=== PATIENT | male | born 1960 | race Caucasian/White ===

== ENCOUNTER 2022-03-07 13:26 | Outpatient (CLI) | payer OTHER, SELFPAY ==
[2022-03-07 13:58] LABS: Creatinine Urine 82.3 mg/dL
[2022-03-07 14:03] LABS: Microalbumin Creatinine Ratio 20 mg/g (0-30); Microalbumin Urine 2 mg/dL
[2022-03-07 14:16] LABS: Albumin* 4.2 g/dL (3.3-5.0); Chloride* 107 mmol/L (96-114); Sodium* 139 mmol/L (135-149)
[2022-03-07 14:17] LABS: Potassium* 4.4 mmol/L (3.6-5.1)
[2022-03-07 14:19] LABS: Alkaline Phosphatase* 127 U/L (40-150); Aspartate Amino Transferase* 24 U/L (12-35); Bilirubin Total* 0.9 mg/dL (0.1-1.5); Blood Urea Nitrogen* 15 mg/dL (7-30); Carbon Dioxide* 28 mmol/L (20-32); Cholesterol* 134 mg/dL (90-199); Creatinine* 0.9 mg/dL (0.5-1.5); Estimated Glomerular Filt Rate 97 ml/min; Glucose* 104 mg/dL (60-115); Total Protein* 6.9 g/dL (6.0-8.3)
[2022-03-07 14:20] LABS: Alanine Aminotransferase* 27 U/L (4-50); HDL Cholesterol* 43 mg/dL (>=40); LDL Cholesterol Calculated 65 mg/dL (<100); Triglycerides* 128 mg/dL (40-149)
== END 2022-03-07 13:27 | disposition home or self-care (01) ==
PROVIDERS: PCP Physician Assistant Medical; Visit Provider Physician Assistant Medical
DX: E78.5 Hyperlipidemia, unspecified (principal)
CPT/HCPCS: 80053; 80061; 82043; 82570

== ENCOUNTER 2022-03-25 08:20 | Emergency (ER) | payer OTHER, SELFPAY ==
[2022-03-25 08:25] VITALS: BP 124/71; PULSE 75; RESP 18; TEMP 36.2; O2SAT 98; BMI 27.4
--- NOTE | 2022-03-25 08:51 | ED.BACK ---
HPI - Back Pain/Injury General Chief Complaint: Back Injury/Pain Stated Complaint: possible stroke Time Seen by Provider: 03/25/22 08:28 History of Present Illness HPI Narrative: This 61-year-old male comes in with pain in his low back radiating down his whole left leg. He states that this pain started a few days ago and became significantly worse this morning. He was up this morning and had intense pain and became very diaphoretic. He called a nurse line and was instructed to come here for evaluation. He states that he has a history of stroke and is on warfarin he does not describe any neurologic deficits. There was no particular injury event or strenuous activity that brought about his back pain radiating down the leg. Related Data Home Medications Medication Instructions Recorded Confirmed warfarin 5 mg tablet 5 mg PO QDAY 03/07/22 03/07/22 Previous Rx's Medication Instructions Recorded atorvastatin 80 mg tablet 80 mg PO QHS #30 tabs 03/06/22 lisinopril 10 mg tablet 10 mg PO QDAY #30 tabs 03/06/22 metoprolol succinate 200 mg 200 mg PO QDAY #30 tabs 03/06/22 tablet,extended release 24 hr cyclobenzaprine 10 mg tablet 10 mg PO TID #15 tabs 03/25/22 hydrocodone 5 mg-acetaminophen 325 1 tab PO Q4-6H PRN pain #20 tabs 03/25/22 mg tablet methylprednisolone 4 mg tablets in See Rx Instructions PO .COMPLEX 03/25/22 a dose pack (Medrol (Ang)) #21 ea Allergies Allergy/AdvReac Type Severity Reaction Status Date / Time No Known Drug Allergies Allergy Verified 03/07/22 09:07 Review of Systems Status of ROS: Reports: 10 or more systems reviewed and unremarkable except as noted in History and below Narrative: Constitutional: No fevers, no weight gain or loss. Eyes: No discharge. No vision changes. HENT: No congestion, no sore throat, no ear pain. Cardiovascular: No chest pain, no palpitations. Respiratory: No shortness of breath, no wheezes, no cough. Gastrointestinal: No abdominal pain, no vomiting, no diarrhea. Genitourinary: No dysuria, no hematuria. Musculoskeletal: Normal range of motion. Low back pain radiating down the left leg. Skin: No rashes, no pruritis. Neurological: No dizziness, weakness, sensory change, speech change. Endo/Heme/Allergies: No bruising or bleeding. No polydipsia. Pysch: no suicidality, no anxiety, no insomnia. All other systems reviewed and are negative. [facility] Medical History (Updated 03/25/22 @ 08:55 by Dawit Mendez MD) Hyperlipemia Exam Narrative: Exam Narrative: Constitutional: Well-developed, well-nourished, no acute distress. HEENT: Normocephalic, atraumatic. Neck: Normal range of motion. Nontender. Supple. Heart: Regular. No murmurs. Normal rate. Intact distal pulses. Lungs: Clear to auscultation. No chest discomfort. No wheezes, rhonchi, or rales. Abdomen: Normal bowel sounds. Nontender. No rebound tenderness. Genitalia: Deferred. Back: No midline tenderness. Pain in the left lower back radiating down the posterior left leg. Straight leg raise of the left leg is positive at about 20?. Extremities: Normal range of motion. No injury. Skin: Intact. No rash. Warm. No erythema or pallor. Neurologic: No altered sensation. No weakness. Alert and oriented. No facial asymmetry. Tongue is midline. Sales Account Specialist strength is equal bilaterally. [id number] is normal. No pronator drift. Heel to daniels is normal. Psychiatric: No suicidality. No anxiety or depression. No insomnia. Nursing notes and vitals signs are reviewed. Const: Vital Signs, click to edit/add: Vital Signs - 24 hr 03/25/22 08:25 Temperature 97.1 F L Pulse Rate [Right Pulse Oximeter] 75 Respiratory Rate 18 Blood Pressure [Ri ght Upper Arm] 124/71 Pulse Oximetry 98 Oxygen Delivery Me thod Room Air Course Vital Signs Vital signs: Initial Vital Signs Temperature 97.1 F L 03/25/22 08:25 Temperature Source Temporal Artery Scan 03/25/22 08:25 Pulse Rate 75 03/25/22 08:25 Respiratory Rate 18 03/25/22 08:25 Blood Pressure 124/71 03/25/22 08:25 Blood Pressure Mean 88 03/25/22 08:25 Blood Pressure Position Sitting 03/25/22 08:25 Pulse Oximetry 98 03/25/22 08:25 Oxygen Delivery Method 03/25/22 08:25 Vital Signs Temperature 97.1 F L 03/25/22 08:25 Pulse Rate 75 03/25/22 08:25 Respiratory Rate 18 03/25/22 08:25 Blood Pressure 124/71 03/25/22 08:25 Pulse Oximetry 98 03/25/22 08:25 Oxygen Delivery Method 03/25/22 08:25 Temperature 97.1 F L 03/25/22 08:25 Pulse Rate 75 03/25/22 08:25 Respiratory Rate 18 03/25/22 08:25 Blood Pressure 124/71 03/25/22 08:25 Pulse Oximetry 98 03/25/22 08:25 Oxygen Delivery Method 03/25/22 08:25 MDM - Back Pain/Injury MDM Narrative Medical decision making narrative: This patient comes in with symptoms typical of a lumbar radiculopathy. His straight leg raise of the left leg is positive. He did not have any specific injury event or mechanism of injury that would indicate imaging at this time. The patient received an intramuscular injection of morphine 10 mg. Prescriptions for Medrol Dosepak, [place], and Flexeril are provided. I advised the patient to follow-up with [facility] here if not improving. Discharge Plan Discharge Clinical Impression: Lumbar radiculopathy Patient Disposition: Home, Self-Care Condition: Stable Additional Instructions: Take medication as prescribed. Follow up with [facility] if not improving. Call [phone] for appointment. Return if worsening. Prescriptions: New cyclobenzaprine 10 mg tablet 10 mg PO TID Qty: 15 0RF hydrocodone-acetaminophen 5-325 mg tablet 1 tab PO Q4-6H PRN (Reason: pain) Qty: 20 0RF methylprednisolone [Medrol (Ang)] 4 mg tablets,dose pack See Rx Instructions .ROUTE .COMPLEX Qty: 21 0RF Rx Instructions: orally per package directions No Action warfarin 5 mg tablet 5 mg PO QDAY Protocol: Dose Management Condition: Sunday Dose/Route: 5 mg Instruction: 1 x 5 mg tablet Condition: Sunday Dose/Route: 5 mg Instruction: 1 x 5 mg tablet Condition: Sunday Dose/Route: 5 mg Instruction: 1 x 5 mg tablet Condition: Sunday Dose/Route: 5 mg Instruction: 1 x 5 mg tablet Condition: Dose/Route: 5 mg Instruction: 1 x 5 mg tablet Condition: Sunday Dose/Route: 5 mg Instruction: 1 x 5 mg tablet Condition: Sunday Dose/Route: 5 mg Instruction: 1 x 5 mg tablet Protocol Text: Adjustment Start Date: Sunday03/07/22 INR Value: 2.0 INR Date: 03/07/22 Recheck Date: 04/04/22 atorvastatin 80 mg tablet 80 mg PO QHS Qty: 30 0RF metoprolol succinate 200 mg tablet extended release 24 hr 200 mg PO QDAY Qty: 30 0RF lisinopril 10 mg tablet 10 mg PO QDAY Qty: 30 0RF Follow Up/Referrals: Maral Cooper [facility] [Primary Care Provider] - Stand Alone Forms: MyHealth Info Instructions
[2022-03-25] MEDS: MORPHINE 10 MG/ML inj IM (08:57)
--- OUTSIDE RECORDS SUMMARY | 2022-03-25 09:22 | XMS_ITS | Clinical Summary ---
:1960 Author Organization [employer] [facility] [place] [address] Care Team Providers Name Role Phone Skip Fallon MD Primary Care Provider [phone] Allergies No known active allergies Medications Medication Sig Dispensed Refills Start Date End Date Status warfarin (COUMADIN) 1 Take 2 tablets 30 tablet 0 03/04/2017 Active mg tabletIndications: by mouth once Left ventricular daily. apical thrombus without IA (HC) warfarin (COUMADIN) 5 Take 1 tablet by 30 tablet 0 03/04/2017 Active mg tabletIndications: mouth once Left ventricular daily. apical thrombus without IA (HC) aspirin chewable 81 mg Take 1 tablet by 91 tablet 3 03/06/2017 Active chewable mouth once daily tabletIndications: with a meal. Ischemic cardiomyopathy nicotine (COMMIT) [address] 1 Lozenge 300 Lozenge 6 7 Active lozengeIndications: in mouth, Tobacco abuse between cheek & gum every hour while awake as needed for Nicotine Craving. nitroglycerin Place 1 tablet 1 Bottle 3 04/03/2017 Active (NITROSTAT) 0.4 mg under the tongue sublingual every 5 minutes tabletIndications: if needed for ASHD (arteriosclerotic Chest Pain. heart disease) nicotine 14 mg/24 hr Apply 1 Patch on 30 Patch 6 04/24/2017 Active (NICODERM; HABITROL) dry, clean, 14 mg/24 hr hairless skin patchIndications: once daily. Tobacco abuse atorvastatin (LIPITOR) Take 1 tablet by 30 tablet 0 07/23/2018 Active 80 mg mouth once tabletIndications: daily. Dyslipidemia lisinopril (PRINIVIL; Take 1 tablet by 30 tablet 0 07/23/2018 Active ZESTRIL) 10 mg mouth once tabletIndications: daily. Ischemic cardiomyopathy metoprolol succinate Take 1 tablet by 30 tablet 0 07/23/2018 Active SR (TOPROL XL) 200 mg mouth once Sustained-Release daily. tabletIndications: Ischemic cardiomyopathy, Atrial fibrillation with RVR (HC) Active Problems Problem Noted Date Acute embolic stroke 03/01/2017 Left ventricular apical thrombus without IA 03/01/2017 Cardiomyopathy 03/01/2017 Tobacco use 03/01/2017 Sebaceous cyst 2006 Immunizations Name Administration Dates Next Due Influenza, IIV4 03/03/2017 Family History Medical History Relation Name Comments Heart failure Mother viral? Premature CHD (under age 60) Neg. Heart Disease No Family History Stroke No Family History Relation Name Status Comments Mother Neg. Social History Tobacco Use Types Packs/Day Years Used Date Smoking Tobacco: Former Cigarettes 0.5 40 Quit : 04/16/2017 Smokeless Tobacco: Never Alcohol Use Standard Drinks/Week Comments Yes 0 (1 standard drink = 0.6 oz pure alcoho l) 2-4 beers/ week Sex Assigned at Date Recorded Not on file Obstetrics History Last Filed Vital Signs Vital Sign Reading Time Taken Comments Blood Pressure 118/70 04/24/2017 3:59 PM CHICK GRADER Pulse 72 04/24/2017 3:59 PM CHICK GRADER Temperature 36.8 ??C (98.2 ??F) 03/04/2017 9:50 AM CHICK GRADER Respiratory Rate 16 04/24/2017 12:58 PM CHICK GRADER Oxygen Saturation 96% 04/24/2017 3:59 PM CHICK GRADER Inhaled Oxygen Concentration - - Weight 80.6 kg (177 lb 12.8 oz) 04/24/2017 3:59 PM CHICK GRADER Height 168 cm (5' 6.14) 04/24/2017 3:59 PM CHICK GRADER Body Mass Index 28.57 04/24/2017 3:59 PM CHICK GRADER Plan of Treatment Health Maintenance Due Date Last Done Comments COVID-19 vaccine series (#1) 02/25/1960 Tdap 08/24/1970 Depression screening for age 12+ 1971 HIV for age 15-65 08/24/1974 Hepatitis C screening for age 18-79 08/24/1977 Tetanus booster 1979 Colonoscopy through age 75 08/24/2004 Zoster (shingles) series for age 50+ (1 of 08/24/2009 2) BMI (ht and wt on same day) for age 18+ 04/24/2018 04/24/19 18, 04/03/2017 Influenza for age 50-64 12/15/2021 03/03/2017 Lipids for age 45-75 03/02/2022 03/02/2017 Medical Devices Implanted Type Area Prescription Clerk Device Shelf Model / Identifier Expiration Date Ser ial / Lot Mesh Inguinal 4in Ultrapro System - [id number] A [employer] J [employer] 11/13/2015 UHSL# / Implanted: Qty: 1 on 05/15/2014 by Jarrett Davila ms, at [facility] Hernia Solution / [id number] Results Not on filefrom Last 3 Months Insurance Payer Benefit Plan / Subscriber ID Effective Dates Phone Addre ss Type Group BLUE CROSS BLUE CROSS OF [id number] 2017-Present [address] [address] [place] [address] Advance Directives Latest Code Status on File Code Status Date Activated Date Inactivated Comments Full Code 03/01/2017 9:49 PM 03/04/2017 3:31 PM Code Status History Code Status Date Activated Date Inactivated Comments Full Code 05/15/2014 10:08 AM 05/15/2014 4:01 PM Care Teams Tooling Specialist Relationship Specialty Start Date End Date Skip Fallon MD PCP - General Family Practice 03/29/17
== END 2022-03-25 09:21 | disposition home or self-care (01) ==
LOC: ED 09:20
PROVIDERS: Emergency Provider Emergency Medicine Emergency Medical Services; PCP Physician Assistant Medical
DX: M54.16 Radiculopathy, lumbar region (principal)
CPT/HCPCS: 96372; 99283; 99284; J2270

== ENCOUNTER 2023-04-18 09:14 | Outpatient (CLI) | payer OTHER, SELFPAY | END 2023-04-18 09:15 | disposition home or self-care (01) | PROVIDERS: PCP Family Medicine; Visit Provider Family Medicine | DX: E78.5 Hyperlipidemia, unspecified (principal); I48.0 Paroxysmal atrial fibrillation | CPT/HCPCS: 80053; 80061 ==

== ENCOUNTER 2023-11-29 08:21 | Outpatient (CLI) | payer OTHER, SELFPAY ==
--- OUTSIDE RECORDS SUMMARY | 2023-11-30 10:32 | XMS_ITS | Clinical Summary ---
Author Organization [facility] Address [place], [place] [address] Care Team Providers Care Balance Wheel Screw Hole Tapper Name Role Phone Skip Fallon MD Primary Care Provider + Allergies No known active allergies Medications Medication Sig Dispensed Refills Start Date End Date Status warfarin (COUMADIN) 1 mg tabletIndications:Lef t ventricular apical thrombus without WI (HC) Take 2 tablets by mouth once daily. 30 tablet 03/04/2017 Active warfarin (COUMADIN) 5 mg tabletIndications:Lef t ventricular apical thrombus without WI (HC) Take 1 tablet by mouth once daily. 30 tablet 03/04/2017 Active aspirin chewable 81 mg chewable tabletIndications:Isc hemic cardiomyopathy Take 1 tablet by mouth once daily with a meal. 91 tablet 3 03/06/2017 Active nicotine (COMMIT) 2 mg lozengeIndications:To bacco abuse Place 1 Lozenge in mouth, between cheek & gum every hour while awake as needed for Nicotine Craving. 300 Lozenge 6 04/03/2017 Active nitroglycerin (NITROSTAT) 0.4 mg sublingual tabletIndications:BULMARO D (arteriosclerotic heart disease) Place 1 tablet under the tongue every 5 minutes if needed for Chest Pain. 1 Bottle 3 04/03/2017 Active nicotine 14 mg/24 hr (NICODERM; HABITROL) 14 mg/24 hr patchIndications:Toba advertising account executive abuse Apply 1 Patch on dry, clean, hairless skin once daily. 30 Patch 6 04/24/2017 Active atorvastatin (LIPITOR) 80 mg tabletIndications:Dys lipidemia Take 1 tablet by mouth once daily. 30 tablet 07/23/2018 Active lisinopril (PRINIVIL; ZESTRIL) 10 mg tabletIndications:Isc hemic cardiomyopathy Take 1 tablet by mouth once daily. 30 tablet 07/23/2018 Active metoprolol succinate SR (TOPROL XL) 200 mg Sustained-Release tabletIndications:Isc hemic cardiomyopathy,Atrial fibrillation with RVR (HC) Take 1 tablet by mouth once daily. 30 tablet 07/23/2018 Active Active Problems Problem Noted Date Diagnosed Date Acute embolic stroke 03/01/2017 Left ventricular apical thrombus without WI 02/14 Cardiomyopathy 03/01/2017 Tobacco use 03/01/2017 Sebaceous cyst [...] Date Smoking Tobacco: Former Cigarettes 0.5 40 0 04/16/1977 - 04/16/2017 Smokeless Tobacco: Never Alcohol Use Standard Drinks/Week Comments Yes 0 (1 standard drink = 0.6 oz pur e alcohol) 2-4 beers/ week Sex and Gender Information Value Date Recorded Sex Assigned at Not on file Gender Identity Not on file Sexual Orientation Not on file Obstetrics History Last Filed Vital Signs Vital Sign Reading Time Taken Comments Blood Pressure 118/70 04/24/2017 3:59 PM FUEL CELL ENGINEER Pulse 72 04/24/2017 3:59 PM FUEL CELL ENGINEER Temperature 36.8 ??C (98.2 ??F) 03/04/2017 9:50 AM CS T Respiratory Rate 16 04/24/2017 12:5 8 PM FUEL CELL ENGINEER Oxygen Saturation 96% 04/24/2017 3:59 PM FUEL CELL ENGINEER Inhaled Oxygen Concentration - - Weight 80.6 kg (177 lb 12.8 oz) 04/24/2017 3:59 PM FUEL CELL ENGINEER Height 168 cm (5' 6.14) 04/24/2017 3:59 PM FUEL CELL ENGINEER Body Mass Index 28.57 04/24/2017 3:59 PM FUEL CELL ENGINEER Plan of Treatment Health Maintenance Due Date Last Done Comments Tdap 08/24/1970 Depression screening for age 12+ 1971 HIV for age 15-65 08/24/1974 Hepatitis C screening for ag e 18-79 08/24/1977 Tetanus booster 1979 Colonoscopy through age 75 08/24/2004 Zoster (shingles) series for age 50+ (1 of 2) 08/24/2009 BMI (ht and wt on same day) for age 18+ 04/24/2018 04/24/2017, 04/03/2017 Lipids for age 45-75 03/02/2022 03/02/2017 COVID-19 vaccine series (2022- season) 2022 Influenza for age 50-64 12/16/2023 03/03/2017 Pneumococcal series for age 6-64 Aged Out No longer eligible b ased on patient's age to complete this topic Medical Devices Implanted Type Area Telephone Service Adviser Device Identifier Shelf Expiration Date Model / Serial / Lot Mesh Inguinal 4in Ultrapro System - [id number] Implanted:Qty: 1 on 05/15/2014 by Jarrett Davila MD at [facility] [employer] Hernia Solution 11/13/2015 [facility]# / / [id number] Procedures Procedure Name Priority Date/Time Associated Diagnosis Comments LIPID PANEL Early AM 03/02/2017 4:28 AM FUEL CELL ENGINEER from Last 3 Months or Most Recently Relevant to Health Maintenance Results * (ABNORMAL) Lipid Panel - Fasting (03/02/2017 4:28 AM FUEL CELL ENGINEER) CHOLESTEROL,TOTAL 196 100 - 199 mg/dL 03/02/2017 5:18 AM FUEL CELL ENGINEER [facility] TRIGLYCERIDES 103 <150 mg/dL 03/02/2017 5:18 AM FUEL CELL ENGINEER [facility] HDL CHOLESTEROL 34(L) >40 mg/dL 7 5:18 AM FUEL CELL ENGINEER [facility] NON-HDL CHOLESTEROL 162(H) <145 mg/dl 03/02/2017 5:18 AM FUEL CELL ENGINEER [facility] CHOL/HDL RATIO 5.76(H) <4.50 03/02/2017 5:18 AM FUEL CELL ENGINEER [facility] LDL CHOLESTEROL 141(H) <=130 mg/dL 03/02/2017 5:18 AM FUEL CELL ENGINEER [facility] PROVIDER ORDERED STATUS RANDOM 03/02/2017 5:18 AM FUEL CELL ENGINEER [facility] Blood BLOOD SPECIMEN / Unknown Venipuncture / Unknown 03/02/2017 4:28 AM FUEL CELL ENGINEER 03/02/2017 4:48 AM FUEL CELL ENGINEER Jarett Brooks MD CHEMISTRY [facility] [address] [place] [address], from Last 3 Months or Most Recently Relevant to Health Maintenance Advance Directives * Full Code (Latest Code Status on File) Date Activated Date Inactivated Comments 03/01/2017 9:49 PM 03/04/2017 3:31 PM * Full Code Date Activated Date Inactivated Comments 05/15/2014 10:08 AM 05/15/2014 4:01 PM Care Teams Balance Wheel Screw Hole Tapper Relationship Specialty Start Date End Date Skip Fallon MD PCP - General Family Practice 03/29/17
== END 2023-11-29 08:22 | disposition home or self-care (01) ==
LOC: NFLDREF 11-30 10:31
PROVIDERS: PCP Physician Assistant Medical; Referring Provider Physician Assistant Medical; Visit Provider Physician Assistant Medical
DX: Z51.81 Encounter for therapeutic drug level monitoring (principal); I48.0 Paroxysmal atrial fibrillation; Z79.01 Long term (current) use of anticoagulants
CPT/HCPCS: 85610

== ENCOUNTER 2024-06-19 09:05 | Outpatient (CLI) | payer MEDICARE, SELFPAY | END 2024-06-19 09:06 | disposition home or self-care (01) | LOC: NFLDREF 06-20 10:20 | PROVIDERS: PCP Physician Assistant Medical; Referring Provider Physician Assistant Medical; Visit Provider Physician Assistant Medical | DX: E78.2 Mixed hyperlipidemia (principal); I25.10 Atherosclerotic heart disease of native coronary artery without angina pectoris; Z51.81 Encounter for therapeutic drug level monitoring; Z79.01 Long term (current) use of anticoagulants | CPT/HCPCS: 80053; 80061 ==

== ENCOUNTER 2024-11-10 13:45 | Outpatient (CLI) | payer MEDICARE, SELFPAY | END 2024-11-10 13:46 | disposition home or self-care (01) | LOC: NFLDREF 11-12 18:33 | PROVIDERS: PCP Physician Assistant Medical; Referring Provider Physician Assistant Medical; Visit Provider Physician Assistant Medical | DX: I48.0 Paroxysmal atrial fibrillation (principal); I63.00 Cerebral infarction due to thrombosis of unspecified precerebral artery; I25.10 Atherosclerotic heart disease of native coronary artery without angina pectoris; E78.2 Mixed hyperlipidemia; Z12.5 Encounter for screening for malignant neoplasm of prostate | CPT/HCPCS: 80053; 80061; 84443; G0103 ==